=== PATIENT | male | born 1970 | race Caucasian/White ===

== ENCOUNTER 2020-08-22 18:01 | Observation (INO) ==
[2020-08-22] MEDS ORDERED: ASPIRIN CHEW 324 MG PO STA (18:37)
[2020-08-22] MEDS ORDERED: GI COCKTAIL ED USE PO ONE (18:39)
--- NOTE | 2020-08-22 18:44 | Emergency Department Note ---
Impression & Plan Chest pain, Abnormal EKG ED Provider Note NAME: AARON NUNES AGE: 50 SEX: M : 1970 ARRIVES VIA: Walk-In INFORMANT: Patient, ED PROVIDER(S): Dany Garcia DO CHIEF COMPLAINT: Chest pain HPI: The patient is a 50-year-old male who presented to the emergency department with his significant other for an evaluation of chest pain. The patient describes anterior chest pain which he described as a pressure that began at 9 :00 this morning while he was at work. He states he has no shortness of breath but does complain of some diaphoresis as well as nausea. He states "my stomach is in a knot". He denies any specific abdominal pain or back pain. He states the pain was associated with palpitations and irregular heartbeat as well as radiation to both shoulders. He states he has no pain at this time. He states that he did have a heart catheterization a few years ago that was normal and it was for similar symptoms. The patient states he has no palpitations at this time. He has no headache but he did have a slight headache when the symptoms began earlier today. He denies having any shortness of breath at this time. He has no swelling in his legs or calf pain. ROS: See above HPI for pertinent positives & negatives. A total of 10 systems reviewed and were otherwise negative. PAST MEDICAL HISTORY: See Below PAST SURGICAL HISTORY: See Below FAMILY HISTORY: See Below SOCIAL HISTORY: See Below HOME MEDICATIONS: See Below ALLERGIES: See Below VITALS: See Below PHYSICAL EXAMINATION: GENERAL: Patient is awake alert in no acute distress patient is resting comfortably and showing no signs of anxiety EYES: The conjunctivae are clear. The pupils are round and reactive. EARS, NOSE, MOUTH AND THROAT: The nose is without any evidence of any deformity. Mucous membranes are moist. Tongue is midline. NECK: The neck is nontender and supple. RESPIRATORY: Normal respiratory effort is noted there is no evidence of wheezing rhonchi or rales CARDIOVASCULAR: Regular rate and rhythm noted there no murmurs rubs or gallops normal S1 normal S2. GASTROINTESTINAL: The abdomen is soft. Abdomen is nontender. MUSCULOSKELETAL/EXTREMITIES: There is no evidence of gross deformity full range of motion is noted in the hips and shoulders. SKIN: There is no obvious evidence of any rash. There are no petechiae, pallor or cyanosis noted. NEUROLOGIC: Patient is awake alert and oriented x3 strength is symmetric patellar reflexes are 2+ bilaterally MEDICAL DECISION MAKING: The patient is a 50-year-old male who presented to the emergency department for an evaluation of chest pain. The patient describes anterior chest pain which began early this morning. He was at work when this occurred. His pain was not typically cardiac sounding however it did have some radiation components that could be related to his heart. The patient's EKG does show some nonspecific ST depressions. Compared to an earlier tracing these changes are new. I discussed the patient's laboratory and radiographic studies with him. I also discussed the limitations of the emergency department work-up for chest pain with him. Ultimately I feel the patient may be at high risk so I will [facility] Triage Nursing notes reviewed. Prior medical records reviewed Vital Signs: reviewed and remarkable for elevated blood pressure. Differential diagnosis: Cardiac ischemia, aortic dissection, pulmonary embolism, pneumothorax, pneumonia, pericarditis, myocarditis, esophageal rupture, GERD, cholecystitis, pancreatitis, musculoskeletal, as well as other pathologies. ER treatment provided: See below Diagnostics interpreted by me: ECG: EKG was obtained in the emergency department. My interpretation is normal sinus rhythm at 88 bpm. There was no ectopy. Inferior and apical ST segment abnormalities were noted. This EKG was compared to a tracing from October 082013. The ST segment abnormalities are new compared to the earlier tracing. Cardiac Monitoring: An order was placed for continuous cardiac monitoring. The monitor shows a rate of 72 bpm with sinus rhythm. Laboratory studies: As stated above and show below. Imaging studies: See below Consultation(s): 1945: The [facility] hospitalist was notified about the patient. Past Med/Surg History Medical History Bronchitis Cellulitis Dermatitis Encounter for CDL (commercial driving license) exam GERD (gastroesophageal reflux disease) Hyperlipidemia Pharyngitis Screening for diabetes mellitus Surgical History S/P tonsillectomy S/P unilateral hernia repair Family History Mother Breast cancer Brother Leukemia Father Heart disease Father Myocardial infarction Family/Other Cancer Denies family history of Ovarian cancer Prostate cancer Lung cancer Colorectal cancer Social History Smoking Status: Former smoker Hx Alcohol Use: No Hx Substance Use: No Preferred Language: Romanian Communication Ability: Effective Visual Impairment: No Limitations Hearing Ability: Normal 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 marital status: Current Living Situation: Spouse current occupational status: employed Feels Safe at Home: Yes Childhood Exposure to Second-Hand Smoke: Yes Dental Care, Regularly: Yes Physical Activity Frequency: Other Physical Activity Frequency Comment: Sometimes Seatbelt Use: always Sunscreen Use: Yes Allergies Allergies Allergy/AdvReac Type Severity Reaction Status Date / Time No Known Allergies Allergy Verified 08/22/20 19:19 Home Meds Previous Rx's Medication Instructions Recorded atorvastatin 20 mg tablet 20 mg PO DAILY #90 tab 04/06/20 omeprazole 40 mg capsule,delayed 40 mg PO DAILY #90 cap 04/06/20 release Results & Data (ED) Vital Signs Vital Signs - 24 hr 08/22/20 18:06 Temperature 36.7 C Temperature Source Oral Pulse Rate 98 H Respiratory Rate 18 Respiratory Effort / Characteristics Non-Labored Spontaneous Respiratory Depth Normal Blood Pressure 150/97 H Blood Pressure Mean 114 Blood Pressure Position Sitting Pulse Oximetry 98 Oxygen Delivery Method Room Air Sepsis Recent Fever Within 48 Hours No Sepsis New/Unexplained Change in Mental Status No Sepsis Action Taken by Nursing No Action Required Home Medications Current Medication List: was personally reviewed by me Laboratory Data Attestation: I reviewed the patient's lab results. Result diagrams: 08/22/20 18:53 08/22/20 18:53 Lab Results 08/22/20 08/22/20 08/22/20 Range/Units 18:53 18:53 18:53 WBC 15.68 H (4.8-10.8) K/uL RBC 5.07 (4.7-6.1) M/uL Hgb 15.6 (14.0-18.0) g/dL Hct 44.5 (42-52) % MCV 87.8 (80-100) fL MCH 30.8 (25-34) pg MCHC 35.1 (32-36) g/dL RDW Std Deviation 38.1 (36.4-46.3) fL RDW Coeff of Karla 12.0 (11.5-14.5) % Plt Count 237 (130-400) K/uL MPV 9.7 (7.4-10.4) fL Immature Gran % (Auto) 0.3 % Neut % (Auto) 82.9 % Lymph % (Auto) 9.7 % [place] % (Auto) 6.6 % Eos % (Auto) 0.3 % Baso % (Auto) 0.2 % Neut # (Auto) 13.01 H (1.4-6.5) K/uL Lymph # (Auto) 1.52 (1.2-3.4) K/uL [place] # (Auto) 1.03 H (0.11-0.59) K/uL Eos # (Auto) 0.04 (0-0.5) K/uL Baso # (Auto) 0.03 (0-0.2) K/uL Immature Gran # (Auto) 0.05 H (0.00-0.02) K/uL PT 11.0 (9.0-12.0) Seconds INR 1.0 (0.9-1.1) APTT 29.3 (21.0-31.0) Seconds PTT Ratio 1.1 D-Dimer 240 (0-500) ug/L FEU Sodium 139 (136-145) mmol/L Potassium 4.2 (3.5-5.1) mmol/L Chloride 103 (98-107) mmol/L Carbon Dioxide 29 (21-32) mmol/L Anion Gap 7.0 (3-11) BUN 10 (7-18) mg/dl Creatinine 1.03 (0.6-1.4) mg/dl Est Cr Clr Drug Dosing 97.9 ml/min Est GFR ( Amer) 98.4 Est GFR (Non-Af Amer) 84.9 BUN/Creatinine Ratio 9.4 L (10-20) Glucose 88 (70-99) mg/dl Calcium 8.9 (8.5-10.1) mg/dl Total Bilirubin 0.7 (0.2-1) mg/dl AST 19 (15-37) U/L ALT 40 (12-78) U/L Alkaline Phosphatase 91 (45-117) U/L Troponin I < 0.015 (0-0.045) ng/ml Total Protein 7.2 (6.4-8.2) gm/dl Albumin 3.7 (3.4-5.0) gm/dl Globulin 3.5 (2.5-4.0) gm/dl Albumin/Globulin Ratio 1.1 (0.9-2) Lipase 114 (73-393) U/L Administered Medications Discontinued Medications Al Hydrox/Mg Hydrox/Simethicone (Gi Cocktail Ed Use) 1 dose PO ONE ONE Stop: 08/22/20 18:40 Last Admin: 08/22/20 18:56 Dose: 1 dose Documented by: [id number] Aspirin (Aspirin Chew 324 Mg) 324 mg PO NOW STA Stop: 08/22/20 18:38 Last Admin: 08/22/20 18:56 Dose: 324 mg Documented by: [id number] Imaging Data Radiologist's Impression: Patient: AARON NUNES Admit Date: 08/22/20 MR#: [id number] Address1: [address] [place] [address] Acct ID:[id number] Address2: Date: 1970 [facility] Zip: [place] [address] Age: 50 Location: ED Sex: M Room/Bed: Att Phy: Diagnosis: CHEST PAIN/PRESSURE, ARM TINGLING Leanna Phy: RV. Weinberg MD Service Date: 08/22/20 [facility] Phy: Interpreting Phy: August Johnson MD Admit Phy: Ordering Phy: Dany Garcia DO cc: ~ SINGLE VIEW CHEST CLINICAL HISTORY: Atypical chest pain. FINDINGS: An AP, portable, upright chest radiograph is compared to study dated 11/30/2015. The cardiomediastinal silhouette is unremarkable. There is mild elevation of the right hemidiaphragm. The lungs and pleural spaces are clear. No pneumothorax is seen. The bony thorax is grossly intact. IMPRESSION: No active disease in the chest. ACT 112: Negative or not required by law. Electronically signed by: August Johnson M.D. 08/22/2020 7:02 PM Dictated: 08/22/201900 Transcribed: 08/22/201900 Blood Pressure Blood Pressure Findings: Elevated blood pressure Blood Pressure Disposition: further management by hospitalist Discharge Plan Visit Data Chief Complaint: Chest Pain Stated Complaint: CHEST PAIN/PRESSURE, ARM TINGLING ED Provider: Dany Garcia Discharge Problem: Chest pain, Abnormal EKG Patient Disposition: Being Evaluated by Hospitalist Condition: Good Forms Stand Alone Forms: My [facility] Prescriptions Prescriptions: No Action atorvastatin 20 mg tablet 20 mg PO DAILY Qty: 90 RF: 3 omeprazole 40 mg capsule,delayed release(DR/EC) 40 mg PO DAILY Qty: 90 RF: 3 Referrals Referrals: Leona Celaya MD [Primary Care Provider] -
[2020-08-22 19:03] LABS: Basophils # (auto) 0.03 K/uL (0-0.2); Basophils % (auto) 0.2 %; Eosinophils # (auto) 0.04 K/uL (0-0.5); Eosinophils % (auto) 0.3 %; Hematocrit (blood only) 44.5 % (42-52); Hemoglobin 15.6 g/dL (14.0-18.0); Immature Granulocytes # (auto) 0.05 K/uL (0.00-0.02); Immature Granulocytes % (auto) 0.3 %; Lymphocytes # (auto) 1.52 K/uL (1.2-3.4); Lymphocytes % (auto) 9.7 %; Mean Corpuscular Hemoglobin 30.8 pg (25-34); Mean Corpuscular Hgb Conc 35.1 g/dL (32-36); Mean Corpuscular Volume 87.8 fL (80-100); Mean Platelet Volume 9.7 fL (7.4-10.4); Monocytes # (auto) 1.03 K/uL (0.11-0.59); Monocytes % (auto) 6.6 %; Neutrophils # (auto) 13.01 K/uL (1.4-6.5); Neutrophils % (auto) 82.9 %; Platelet Count 237 K/uL (130-400); RDW Standard Deviation 38.1 fL (36.4-46.3); Red Blood Count 5.07 M/uL (4.7-6.1); White Blood Count 15.68 K/uL (4.8-10.8)
--- NOTE | 2020-08-22 19:03 | XRay Report ---
SINGLE VIEW CHEST CLINICAL HISTORY: Atypical chest pain. FINDINGS: An AP, portable, upright chest radiograph is compared to study dated 11/30/2015. The cardiom ediastinal silhouette is unremarkable. There is mild elevation of the right hemidiaphragm. The lungs and pleural spaces are clear. No pneumothorax is seen. The bony thorax is grossly intact. IMPRESSION: No active disease in the chest. ACT 112: Negative or not required by law. Electronically signed by: August Johnson M.D. 08/22/2020 7:02 PM
[2020-08-22 19:19] LABS: D Dimer 240 ug/L FEU (0-500); Partial Thromboplastin Ratio 1.1; Partial Thromboplastin Time 29.3 Seconds (21.0-31.0)
[2020-08-22 19:20] LABS: Alanine Aminotransferase 40 U/L (12-78); Albumin Level 3.7 gm/dl (3.4-5.0); Aspartate Aminotransferase 19 U/L (15-37); BUN Creatinine Ratio 9.4 (10-20); Blood Urea Nitrogen 10 mg/dl (7-18); Calcium 8.9 mg/dl (8.5-10.1); Carbon Dioxide 29 mmol/L (21-32); Chloride 103 mmol/L (98-107); Creatinine Clr Calc Pharmacy 97.9 ml/min; Est GFR (African American) 98.4; Est GFR (Non-African American) 84.9; Glucose 88 mg/dl (70-99); Lipase 114 U/L (73-393); Potassium 4.2 mmol/L (3.5-5.1); Sodium 139 mmol/L (136-145)
[2020-08-22 19:25] LABS: Albumin Globulin Ratio 1.1 (0.9-2); Alkaline Phosphatase 91 U/L (45-117); Bilirubin,Total 0.7 mg/dl (0.2-1); Globulin 3.5 gm/dl (2.5-4.0); Total Protein 7.2 gm/dl (6.4-8.2); Troponin I < 0.015 ng/ml (0-0.045)
--- NOTE | 2020-08-22 20:34 | History & Physical Report ---
Date of Service August 22, 2020 Assessment & Plan (1) Chest pain: Exertional chest pain/abnormal EKG/family history of father with fatal UT at age 56- The patient will be admitted to telemetry for serial cardiac enzymes, serial EKG's, cardiac rhythm monitoring and a 2-D echocardiogram with Dopplers. Received 324 mg aspirin today, and will continue at 81 mg daily. If work-up is negative, will need a stress test prior to discharge. Of note, he did have a stress echo done in 2013 which was normal Present on Admission?: Yes (2) Abnormal EKG: See above Present on Admission?: Yes (3) GERD (gastroesophageal reflux disease): Continue omeprazole 40 mg daily Present on Admission?: Yes (4) Hyperlipidemia: Continue atorvastatin 20 mg daily. Check a fasting lipid panel and hemoglobin A1c Present on Admission?: Yes (5) Family history of heart disease: His father of a massive heart attack at age 56, unknown if he had had any issues prior to that Present on Admission?: Yes History of Present Illness Chief Complaint: The patient presents to the ED with complaint of an acute episode of chest pain/pressure, palpitations nausea and sweats while at work earlier today. Primary Care Provider: Leona Celaya MD The patient is a 50-year-old male with a past medical history including hyperlipidemia, GERD, family history of father with premature CAD and cardiac . He presents to the emergency department with acute onset of chest discomfort, shortness of breath, nausea and sweats while at work earlier in the day. He has not had these symptoms in the past. 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 He denies any direct exposure to Covid 19. He did take 2 aspirin when the symptoms occurred, and has had 2 additional baby aspirin since that time. He does not take aspirin on a regular basis. Allergies Allergy/AdvReac Type Severity Reaction Status Date / Time No Known Allergies Allergy Verified 08/22/20 19:19 Home Medications Home Medications Medication Instructions Recorded Confirmed Type atorvastatin 20 mg tablet 20 mg PO DAILY #90 tab 04/06/20 08/22/20 Rx omeprazole 40 mg capsule,delayed 40 mg PO DAILY #90 cap 04/06/20 08/22/20 Rx release Past Med/Surg History Medical History Bronchitis Cellulitis Dermatitis Encounter for CDL (commercial driving license) exam GERD (gastroesophageal reflux disease) Hyperlipidemia Pharyngitis Screening for diabetes mellitus Surgical History S/P tonsillectomy S/P unilateral hernia repair Family History Mother Breast cancer Brother Leukemia Father Heart disease Father Myocardial infarction Family/Other Cancer Denies family history of Ovarian cancer Prostate cancer Lung cancer Colorectal cancer Social History Smoking Status: Former smoker Hx Alcohol Use: No Hx Substance Use: No Preferred Language: Tuvaluan Communication Ability: Effective Visual Impairment: No Limitations Hearing Ability: Normal Clinical Research Tech Required: No marital status: Current Living Situation: Spouse current occupational status: employed Feels Safe at Home: Yes Childhood Exposure to Second-Hand Smoke: Yes Dental Care, Regularly: Yes Physical Activity Frequency: Other Physical Activity Frequency Comment: Sometimes Seatbelt Use: always Sunscreen Use: Yes Review of Systems Review of Systems: The patient denies cough, lower extremity swelling, sore throat, fevers, chills, sweats, vomiting, diarrhea , constipation, abdominal pain, pelvic pain, blood in urine or stool, dysuria, urinary frequency or urgency, lightheadedness, dizziness, headache, memory loss, loss of consciousness, rash, abnormal bruising or bleeding, imbalance, focal or generalized weakness, numbness or tingling in legs, generalized arthralgias or myalgias, back or neck pain, or night sweats. The review of systems is otherwise negative other than for that already noted above, and at least 10 systems have been reviewed. Physical Exam Physical Exam: The patient is awake, alert and oriented 3, well developed and well nourished, normocephalic and atraumatic, lying in bed and in no acute distress. HEENT--PERRL, EOMI, mucous membranes and oropharynx normal. Neck--supple. No JVD. No bruits. Thyroid normal, trachea midline, no adenopathy. Heart--normal S1 and S2. No murmurs, rubs or gallops. Lungs--clear bilaterally, no respiratory distress, no accessory muscle use. Abdomen--normal bowel sounds and soft. Nontender. Nondistended, no hernias or masses, no organomegaly. Extremities--no cyanosis or clubbing. No edema. Dermatologic--normal skin turgor, normal color, no abnormal lymph nodes, no rash. Neurologic--cranial nerves II through XII grossly intact. Rheumatologic--normal range of motion. Psychiatric--normal affect. Results & Data Results & Data ([facility]) Vital Signs (Past 12 Hours) Vital Signs Temp Pulse Resp BP Pulse Ox 08/22/20 18:06 98.1 F 98 H 18 150/97 H 98 Laboratory Results Laboratory Results WBC 15.68 K/uL (4.8-10.8) H 08/22/20 18:53 RBC 5.07 M/uL (4.7-6.1) 08/22/20 18:53 Hgb 15.6 g/dL (14.0-18.0) 08/22/20 18:53 Hct 44.5 % (42-52) 08/22/20 18:53 MCV 87.8 fL (80-100) 08/22/20 18:53 MCH 30.8 pg (25-34) 08/22/20 18:53 MCHC 35.1 g/dL (32-36) 08/22/20 18:53 RDW Std Deviation 38.1 fL (36.4-46.3) 08/22/20 18:53 RDW Coeff of Karla 12.0 % (11.5-14.5) 08/22/20 18:53 Plt Count 237 K/uL (130-400) 08/22/20 18:53 MPV 9.7 fL (7.4-10.4) 08/22/20 18:53 Immature Gran % (Auto) 0.3 % 08/22/20 18:53 Neut % (Auto) 82.9 % 08/22/20 18:53 Lymph % (Auto) 9.7 % 08/22/20 18:53 [place] % (Auto) 6.6 % 08/22/20 18:53 Eos % (Auto) 0.3 % 08/22/20 18:53 Baso % (Auto) 0.2 % 08/22/20 18:53 Neut # (Auto) 13.01 K/uL (1.4-6.5) H 08/22/20 18:53 Lymph # (Auto) 1.52 K/uL (1.2-3.4) 08/22/20 18:53 [place] # (Auto) 1.03 K/uL (0.11-0.59) H 08/22/20 18:53 Eos # (Auto) 0.04 K/uL (0-0.5) 08/22/20 18:53 Baso # (Auto) 0.03 K/uL (0-0.2) 08/22/20 18:53 Immature Gran # (Auto) 0.05 K/uL (0.00-0.02) H 08/22/20 18:53 PT 11.0 Seconds (9.0-12.0) 08/22/20 18:53 INR 1.0 (0.9-1.1) 08/22/20 18:53 APTT 29.3 Seconds (21.0-31.0) 08/22/20 18:53 PTT Ratio 1.1 08/22/20 18:53 D-Dimer 240 ug/L FEU (0-500) 08/22/20 18:53 Sodium 139 mmol/L (136-145) 08/22/20 18:53 Potassium 4.2 mmol/L (3.5-5.1) 08/22/20 18:53 Chloride 103 mmol/L (98-107) 08/22/20 18:53 Carbon Dioxide 29 mmol/L (21-32) 08/22/20 18:53 Anion Gap 7.0 (3-11) 08/22/20 18:53 BUN 10 mg/dl (7-18) 08/22/20 18:53 Creatinine 1.03 mg/dl (0.6-1.4) 08/22/20 18:53 Est Cr Clr Drug Dosing 97.9 ml/min 08/22/20 18:53 Est GFR ( Amer) 98.4 08/22/20 18:53 Est GFR (Non-Af Amer) 84.9 08/22/20 18:53 BUN/Creatinine Ratio 9.4 (10-20) L 08/22/20 18:53 Glucose 88 mg/dl (70-99) 08/22/20 18:53 Calcium 8.9 mg/dl (8.5-10.1) 08/22/20 18:53 Total Bilirubin 0.7 mg/dl (0.2-1) 08/22/20 18:53 AST 19 U/L (15-37) 08/22/20 18:53 ALT 40 U/L (12-78) 08/22/20 18:53 Alkaline Phosphatase 91 U/L (45-117) 08/22/20 18:53 Troponin I < 0.015 ng/ml (0-0.045) 08/22/20 18:53 Total Protein 7.2 gm/dl (6.4-8.2) 08/22/20 18:53 Albumin 3.7 gm/dl (3.4-5.0) 08/22/20 18:53 Globulin 3.5 gm/dl (2.5-4.0) 08/22/20 18:53 Albumin/Globulin Ratio 1.1 (0.9-2) 08/22/20 18:53 Lipase 114 U/L (73-393) 08/22/20 18:53 Diagnostic Findings [place], [place] [phone] XRay Report Patient: AARON NUNES Date: 08/22/20 MR#: [id number]: [address] [facility] Acct ID:[id number]: Date: 1970[facility] Zip: [place] [address] Age: 50Location: ED Sex: MRoom/Bed: Att Phy:Diagnosis: CHEST PAIN/PRESSURE, ARM TINGLING Leanna Phy: RV. Sultana, MDService Date: 08/22/20 Fam Phy:Interpreting Phy: August Johnson MD Admit Phy: Ordering Phy: Dany Garcia DO cc: ~ SINGLE VIEW CHEST CLINICAL HISTORY: Atypical chest pain. FINDINGS: An AP, portable, upright chest radiograph is compared to study dated 11/30/2015. The cardiomediastinal silhouette is unremarkable. There is mild elevation of the right hemidiaphragm. The lungs and pleural spaces are clear. No pneumothorax is seen. The bony thorax is grossly intact. IMPRESSION: No active disease in the chest. ACT 112: Negative or not required by law. Electronically signed by: August Johnson M.D. 08/22/2020 7:02 PM Dictated: 08/22/201900 Transcribed: 08/22/201900 Code Status & VTE Plan Code Status Full code VTE Prophylaxis Plan VTE Prophylaxis will be ordered: Yes PG Care Time/CCT Total # of Minutes Spent Total Time Spent with Patient: Total time spent is greater than 50% in coordination of care (as documented) at patient's floor/unit and/or counseling patient: Coding Level of Care Code 74808 OBS Care - Level 3 Diagnoses Chest pain R07.9 Chest pain type: unspecified Abnormal EKG R94.31 GERD (gastroesophageal reflux disease) K21.9 Hyperlipidemia E78.5 Family history of heart disease Z82.49 (1) Chest pain Chest pain type: unspecified Qualified Code(s): R07.9 - Chest pain, unspecified
[2020-08-22] MEDS ORDERED: MoRPHine SULFATE 2 MG/ML CARP IV PRN (22:13)
[2020-08-22] MEDS ORDERED: MAGNESIUM HYDROXIDE SUSP 30 ML UDC PO PRN (22:13)
[2020-08-22] MEDS ORDERED: ALUMINUM/MAGNESIUM SUSP 30 ML UDC PO PRN (22:13)
[2020-08-22] MEDS ORDERED: ONDANSETRON INJ 2 MG/ML 2 ML VIAL IV PRN (22:13)
[2020-08-22] MEDS ORDERED: ACETAMINOPHEN 325 MG TAB PO PRN (22:13)
[2020-08-22] MEDS ORDERED: NITROGLYCERIN SL 0.4 MG/TAB TAB SL PRN (22:13)
[2020-08-22] MEDS ORDERED: INFLUENZA VIRUS QUAD VACCINE 0.5 ML SYR IM ONE (22:28)
[2020-08-22] MEDS ORDERED: INFLUENZA ADMINISTRATION CHARGE ONE (22:28)
[2020-08-23 08:21] LABS: Basophils # (auto) 0.02 K/uL (0-0.2); Basophils % (auto) 0.2 %; Eosinophils # (auto) 0.05 K/uL (0-0.5); Eosinophils % (auto) 0.5 %; Hematocrit (blood only) 44.3 % (42-52); Hemoglobin 15.5 g/dL (14.0-18.0); Immature Granulocytes # (auto) 0.02 K/uL (0.00-0.02); Immature Granulocytes % (auto) 0.2 %; Lymphocytes # (auto) 1.37 K/uL (1.2-3.4); Lymphocytes % (auto) 14.4 %; Mean Corpuscular Hemoglobin 30.7 pg (25-34); Mean Corpuscular Volume 87.7 fL (80-100); Mean Platelet Volume 9.8 fL (7.4-10.4); Monocytes # (auto) 0.98 K/uL (0.11-0.59); Monocytes % (auto) 10.3 %; Neutrophils # (auto) 7.06 K/uL (1.4-6.5); Neutrophils % (auto) 74.4 %; Platelet Count 225 K/uL (130-400); Red Blood Count 5.05 M/uL (4.7-6.1)
--- NOTE | 2020-08-23 08:23 | XCELERA ---
[id number]
[2020-08-23 08:48] LABS: Albumin Level 3.5 gm/dl (3.4-5.0); BUN Creatinine Ratio 9.5 (10-20); Blood Urea Nitrogen 10 mg/dl (7-18); Calcium 9.3 mg/dl (8.5-10.1); Carbon Dioxide 27 mmol/L (21-32); Chloride 105 mmol/L (98-107); Creatinine Clr Calc Pharmacy 99.5 ml/min; Glucose 94 mg/dl (70-99); Magnesium 2.2 mg/dl (1.8-2.4); Potassium 4.1 mmol/L (3.5-5.1); Sodium 138 mmol/L (136-145)
[2020-08-23 08:53] LABS: Troponin I < 0.015 ng/ml (0-0.045)
[2020-08-23] MEDS ORDERED: PANTOprazole 40 MG TAB PO SCH (09:00)
[2020-08-23] MEDS ORDERED: ATORVASTATIN 20 MG TAB PO SCH (09:00)
[2020-08-23] MEDS ORDERED: ASPIRIN 81 MG ECTAB PO SCH (09:00)
--- NOTE | 2020-08-23 09:08 | Electrocardiogram Report ---
Test Reason : Blood Pressure : / mmHG Vent. Rate : 081 BPM Atrial Rate : 081 BPM P-R Int : 150 ms QRS Dur : 094 ms QT Int : 370 ms P-R-T Axes : 058 033 021 degrees QTc Int : 429 ms Normal sinus rhythm Normal ECG When compared with ECG of 22-AUG-2020 18:07, No significant change was found Confirmed by Charli Martínez ([id number]) on 08/23/2020 9:08:24 AM Referred By: REFERRED SELF Confirmed By:Charli Martínez
--- NOTE | 2020-08-23 09:26 | Cardiology Consultation ---
Date of Consultation August 23, 2020 Assessment & Plan (1) Atypical chest pain: Mr. Pepper is a 50 year old male with a history of Non-Obstructive CAD (on Complete Cardiac CT Scan 2013), Hyperlipidemia, GERD, and Obesity who was admitted to [facility] on 08/22/2020 with an Atypical Chest Pain Syndrome. 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 There was no radiation of the chest pain. He denies any associated symptoms with this sharp chest pain -- specifically denying any associated nausea, vomiting, diaphoresis, or dyspnea. The chest pain was present off and on and did NOT worsen or have any association with exertion. Therefore he presented to [facility] ER for further evaluation, was admitted to the Telemetry unit. His cardiac work-up has shown undetectable Troponin I levels, normal EKG's, and his Echocardiogram shows borderline dilated LV with low normal LV systolic function (LVEF 50% to 55%). No regional wall motion abnormalities but borderline global hypokinesis. Based on his personal history of Non-Occlusive CAD in 2014 and Hyperlipidemia, we recommend the followin. Stress Echocardiogram this morning to rule out myocardial ischemia. 2. Advised to eat a heart healthy. 3. Start Aspirin 81 mg daily for primary prevention. 4. Recommend that he start taking Atorvastatin 20 mg daily or else increase Atorvastatin to 40 mg every other day. (2) CAD (coronary artery disease): -- Start Aspirin 81 mg daily for primary prevention. -- Recommend that he start taking Atorvastatin 20 mg daily or else increase Atorvastatin to 40 mg every other day. -- We discussed more aggressive lipid management and dietary interventions. -- Begin and progress an aerobic exercise program as tolerated. -- Lose weight. (3) Hyperlipidemia: -- As outlined above. Supervising Physician Co-Signing Physician Notes ADDENDUM (Dr. Martínez): Patient seen, interviewed, and examined. Agree with plan as outlined above by Mr. Carlos PURVIS. Patient had atypical chest pain (sharp, pleuritic component) yesterday which resolved, no symptoms currently. He underwent a stress echocardiogram this morning, exercise tolerance is very good and there were no ECG or echocardiographic findings to suggest myocardial ischemia or dysrhythmia. Agree with plan to continue aggressive cardiovascular risk factor management given his known nonocclusive coronary artery disease. Okay for discharge. History of Present Illness Reason for Consultation: -- Chest Pain. -- Family history of Premature CAD. Requesting Physician: Philly Charles MD Attending Physician: Charli Martínez MD History of Present Illness Mr. Pepper is a 50 year old male with a history of Non-Obstructive CAD (on Complete Cardiac CT Scan 2013), Hyperlipidemia, GERD, and Obesity who was admitted to [facility] on 08/22/2020 with a Chest Pain Syndrome. Patient was in his usual state of health yesterday morning and doing some manual work assembling some materials when he twisted his torso to one side and then had the onset of a Left Sided Chest Pain (mid left anterior chest pain in the midclavicular line) which was described as "a sharp pain" that worsened by taking a deep breath with an associated "stomachache" and a mild headache. There was no radiation of the chest pain. He denies any associated symptoms with this sharp chest pain -- specifically denying any associated nausea, vomiting, diaphoresis, or dyspnea. The chest pain was present off and on and did NOT worsen or have any association with exertion. Patient's cardiac risk factor include gender, hyperlipidemia, obesity, and a family history of premature CAD -- father of a heart attack at the age of 56. Paternal grandfather also a heart attack at a young age. Patient is a former smoker and he quit smoking several years ago. Thus far, his Cardiac Evaluation shows negative Troponin I levels x 3, and his Echocardiogram shows borderline dilated LV with low normal LV systolic function (LVEF 50% to 55%). No regional wall motion abnormalities but borderline global hypokinesis. Serial EKG's show normal sinus rhythm, normal tracings. Patient denies any chest pain or dyspnea at the present time. Patient underwent a Stress Echocardiogram in 2013 -- which was equivocal. He subsequently underwent Complete Cardiac CT Scan 10/23/2014: -- [place] CCS 88.02. -- LMCA -- No evidence of disease. -- LAD -- Calcified proximal plaque with 25% to 49% stenosis, < 25% midvessel stenosis, < 25% distal stenosis. -- LCx -- Within normal limits. -- RI -- Within normal limits. -- RCA -- Dominant vessel, with < 25% proximal stenosis. Allergies Allergy/AdvReac Type Severity Reaction Status Date / Time No Known Allergies Allergy Verified 08/22/20 19:19 Home Medications Home Medications Medication Instructions Recorded Confirmed Type atorvastatin 20 mg tablet 20 mg PO DAILY #90 tab 04/06/20 08/22/20 Rx omeprazole 40 mg capsule,delayed 40 mg PO DAILY #90 cap 04/06/20 08/22/20 Rx release Patient History Medical History (Updated 08/23/20 @ 11:49 by Rica Stanton) Cellulitis Dermatitis GERD (gastroesophageal reflux disease) Hyperlipidemia Surgical History S/P tonsillectomy S/P unilateral hernia repair Family History Mother Breast cancer Brother Leukemia Father Heart disease Father Myocardial infarction Family/Other Cancer Denies family history of Ovarian cancer Prostate cancer Lung cancer Colorectal cancer Social History Smoking Status: Never smoker Hx Alcohol Use: Yes Alcohol type: wine Hx Substance Use: No Preferred Language: Kazakh Communication Ability: Effective Visual Impairment: No Limitations Hearing Ability: Normal Clinical Program Consultant Required: No Beliefs That Will Affect Care: None marital status: Current Living Situation: Significant Other current occupational status: employed Feels Safe at Home: Yes Childhood Exposure to Second-Hand Smoke: Yes Dental Care, Regularly: Yes Physical Activity Frequency: Other Physical Activity Frequency Comment: Sometimes Seatbelt Use: always Sunscreen Use: Yes Assistive Devices: None Physical Exam Physical Exam: GENERAL: Patient in no acute distress. HEENT: Head is atraumatic, normocephalic. EOM's intact. Facies symmetric. No perioral cyanosis. NECK: No JVD. JVP is at the level of the clavicle sitting upright. Carotid upstrokes are + 2 bilaterally. No bruits are noted. CHEST/LUNGS: Clear to auscultation throughout all lung lewis. No wheezes, rales, or crackles. CVS: S1 and S2 are regular without obvious murmurs, gallops, or rubs. PMI is nonpalpable. No lifts, heaves, or thrills. No abdominal aortic or renal bruits. ABDOMINAL EXAM: Bowel sounds are present. No masses, organomegaly, or tenderness. EXTREMITIES: No clubbing or cyanosis. No edema. Intact radial pulses bilaterally. NEUROLOGIC EXAM: Patient is awake, alert, and oriented. Pleasant and cooperative. Answers questions appropriately. Speech is clear. Normal movement in all 4 extremities. Gait pattern is unremarkable. TELEMETRY: -- NSR with HR in the 60's to 80's range. -- No arrhythmias or significant ectopy. STRESS ECHOCARDIOGRAM is pending. Results & Data ([facility]) Vital Signs (Past 12 Hours) Vital Signs Temp Pulse Pulse Resp BP Pulse Ox 08/23/20 07:09 36.8 C 78 14 127/87 95 08/23/20 03:58 37.8 C H 92 H 16 128/83 92 08/22/20 23:20 37.1 C 80 14 128/76 96 08/22/20 22:16 89 08/22/20 22:13 37.1 C 85 20 130/81 93 Laboratory Results Laboratory Results - last 24 hr 08/22/20 08/22/20 08/22/20 18:53 18:53 18:53 WBC 15.68 H RBC 5.07 Hgb 15.6 Hct 44.5 MCV 87.8 MCH 30.8 MCHC 35.1 RDW Std Deviation 38.1 RDW Coeff of Karla 12.0 Plt Count 237 MPV 9.7 Immature Gran % (Auto) 0.3 Neut % (Auto) 82.9 Lymph % (Auto) 9.7 Hancock % (Auto) 6.6 Eos % (Auto) 0.3 Baso % (Auto) 0.2 Neut # (Auto) 13.01 H Lymph # (Auto) 1.52 Hancock # (Auto) 1.03 H Eos # (Auto) 0.04 Baso # (Auto) 0.03 Immature Gran # (Auto) 0.05 H PT 11.0 INR 1.0 APTT 29.3 PTT Ratio 1.1 D-Dimer 240 Sodium 139 Potassium 4.2 Chloride 103 Carbon Dioxide 29 Anion Gap 7.0 BUN 10 Creatinine 1.03 Est Cr Clr Drug Dosing 97.9 Est GFR ( Amer) 98.4 Est GFR (Non-Af Amer) 84.9 BUN/Creatinine Ratio 9.4 L Glucose 88 Calcium 8.9 Phosphorus Magnesium Total Bilirubin 0.7 AST 19 ALT 40 Alkaline Phosphatase 91 Troponin I < 0.015 Total Protein 7.2 Albumin 3.7 Globulin 3.5 Albumin/Globulin Ratio 1.1 Lipase 114 08/22/20 08/23/20 08/23/20 23:05 07:54 07:54 WBC 9.50 RBC 5.05 Hgb 15.5 Hct 44.3 MCV 87.7 MCH 30.7 MCHC 35.0 RDW Std Deviation 38.0 RDW Coeff of Karla 12.0 Plt Count 225 MPV 9.8 Immature Gran % (Auto) 0.2 Neut % (Auto) 74.4 Lymph % (Auto) 14.4 Hancock % (Auto) 10.3 Eos % (Auto) 0.5 Baso % (Auto) 0.2 Neut # (Auto) 7.06 H Lymph # (Auto) 1.37 Hancock # (Auto) 0.98 H Eos # (Auto) 0.05 Baso # (Auto) 0.02 Immature Gran # (Auto) 0.02 PT INR APTT PTT Ratio D-Dimer Sodium 138 Potassium 4.1 Chloride 105 Carbon Dioxide 27 Anion Gap 6.0 BUN 10 Creatinine 1.00 Est Cr Clr Drug Dosing 99.5 Est GFR ( Amer) 102.0 Est GFR (Non-Af Amer) 88.0 BUN/Creatinine Ratio 9.5 L Glucose 94 Calcium 9.3 Phosphorus 3.0 Magnesium 2.2 Total Bilirubin AST ALT Alkaline Phosphatase Troponin I < 0.015 < 0.015 Total Protein Albumin 3.5 Globulin Albumin/Globulin Ratio Lipase Medications Administered Active Medications Generic Name Dose Route Start Last Admin Trade Name Freq PRN Reason Stop Dose Admin Acetaminophen 650 mg 08/22/20 22:13 Acetaminophen 325 Mg Tab PO 09/21/20 22:12 Q4H PRN Pain or Fever Al Hydrox/Mg Hydrox/Simethicone 15 ml 08/22/20 22:13 Aluminum/Magnesium Susp 30 Ml Udc PO 09/21/20 22:12 Q4H PRN Dyspepsia Aspirin 81 mg 08/23/20 09:00 08/23/20 07:52 Aspirin 81 Mg Ectab PO 09/22/20 08:59 81 mg QAM JAVAD Administration Atorvastatin Calcium 20 mg 08/23/20 09:00 08/23/20 07:52 Atorvastatin 20 Mg Tab PO 09/22/20 08:59 20 mg DAILY JAVAD Administration Magnesium Hydroxide 30 ml 10/18/20 22:13 Magnesium Hydroxide Susp 30 Ml Udc PO 09/21/20 22:12 Q12H PRN Constipation Morphine Sulfate 2 mg 08/22/20 22:13 Morphine Sulfate 2 Mg/Ml Carp IV 09/05/20 22:12 Q30M PRN Chest Pain Nitroglycerin 0.4 mg 08/22/20 22:13 Nitroglycerin Sl 0.4 Mg/Tab Tab SL 09/21/20 22:12 UD PRN Chest Pain Ondansetron HCl 4 mg 08/22/20 22:13 Ondansetron Inj 2 Mg/Ml 2 Ml Vial IV 09/21/20 22:12 Q6H PRN Nausea Pantoprazole Sodium 40 mg 08/23/20 09:00 08/23/20 07:51 Pantoprazole 40 Mg Tab PO 09/22/20 08:59 40 mg DAILY JAVAD Administration PG Care Time/CCT Total # of Minutes Spent Total Time Spent with Patient: Total time spent is greater than 50% in coordination of care (as documented) at patient's floor/unit and/or counseling patient: 30 Coding Level of Care Code 52974 Inpt Consult Level 4 Diagnoses Atypical chest pain R07.89 CAD (coronary artery disease) I25.10 Hyperlipidemia E78.5 Time Spent (min) 55
--- NOTE | 2020-08-23 09:33 | Medical Student H&P ---
Date of Service August 23, 2020 Assessment & Plan (1) Chest pain: Manpreet is a 50 yo M with a history of HLD and previous smoking presenting with exertional chest pain with an abnormal EKG (mild ST- depressions in V4 V5 V6). He was admitted to telemetry for serial cardiac enzymes, serial EKG's and an echocardiogram. Aspirin 324mg/d was initiated on admission and will be continued at 81mg daily. D-dimers and troponin were not found to be elevated. Serial EKG's showed no abnormalities. A stress echo was ordered this morning. If there are no significant findings from the stress echo, the patient will be discharged and encouraged to follow up with his PCP. Chest pain type: unspecified Qualified Code(s): R07.9 - Chest pain, unspecified (2) Abnormal EKG: See above (3) GERD (gastroesophageal reflux disease): Continue omeprazole 40 mg daily (4) Hyperlipidemia: Continue atorvastatin 20 mg daily. (5) Family history of heart disease: His father of a massive heart attack at age 56, unknown if he had had any issues prior to that Admission and Anticipated Discharge Date Admission Date: August 22, 2020 History of Present Illness Primary Care Provider: Leona Celaya MD Manpreet is a 50 yo M with a PMHx of HLD and GERD that presented to the ED yesterday (08/22) at 6:40pm with anterior chest pain. 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 Pain was 7/10, radiated to the shoulders, was associated with palpation and irregular heart beat, and diaphoresis. He had no SOB. He took aspirin at the start of chest pain which did not improve the pain. Two more aspirin were taken prior to admission. He has had similar symptoms previously (3-4 years ago) for which he had a digoxin stress test showed no abnormalities. He denies any direct known COVID exposure. Family history is significant for by [place] in his father at age 50. Social history is significant for smoking with a 25 pack-year history, however he quit 8 years ago. Allergies Allergy/AdvReac Type Severity Reaction Status Date / Time No Known Allergies Allergy Verified 08/22/20 19:19 Home Medications Home Medications Medication Instructions Recorded Confirmed Type atorvastatin 20 mg tablet 20 mg PO DAILY #90 tab 04/06/20 08/22/20 Rx omeprazole 40 mg capsule,delayed 40 mg PO DAILY #90 cap 04/06/20 08/22/20 Rx release Past Med/Surg History Medical History (Updated 08/23/20 @ 11:49 by Rica Stanton) Cellulitis Dermatitis GERD (gastroesophageal reflux disease) Hyperlipidemia Surgical History S/P tonsillectomy S/P unilateral hernia repair Family History Mother Breast cancer Brother Leukemia Father Heart disease Father Myocardial infarction Family/Other Cancer Denies family history of Ovarian cancer Prostate cancer Lung cancer Colorectal cancer Social History Smoking Status: Never smoker Hx Alcohol Use: Yes Alcohol type: wine Hx Substance Use: No Preferred Language: Hungarian Communication Ability: Effective Visual Impairment: No Limitations Hearing Ability: Normal Animal Doctor Required: No Beliefs That Will Affect Care: None marital status: Current Living Situation: Significant Other current occupational status: employed Feels Safe at Home: Yes Childhood Exposure to Second-Hand Smoke: Yes Dental Care, Regularly: Yes Physical Activity Frequency: Other Physical Activity Frequency Comment: Sometimes Seatbelt Use: always Sunscreen Use: Yes Assistive Devices: None Review of Systems Manpreet endorses stomach pain rated 6/10 since the onset of his chest pain. Review of systems is otherwise negative. He denies nausea vomit, change in bowel habits. Manpreet denies cough, lower extremity swelling, sore throat, fevers, chills, sweats, blood in urine or stool, dysuria, urinary frequency or urgency, lightheadedness, dizziness, headache, memory loss, loss of consciousness, rash, abnormal bruising or bleeding, imbalance, focal or generalized weakness, numbness or tingling in legs, generalized arthralgias or myalgias, back or neck pain, or night sweats. . Physical Exam Physical Exam: Constitutional: Appears alert and non-distressed. Oriented x 3. HEENT: PERRL, EOMI, mucous membranes and oropharynx normal. Neck: Supple. No JVD appreciated. No bruits. No thyromegaly, trachea midline, no adenopathy. Heart: RRR, NMRG, normal S1 and S2. No pain to palpation over the precordium. Lung: Clear to auscultation bilaterally, no respiratory distress, no accessory muscle use. Abdomen:NABS. Nondistended, nontender. No hepatosplenomagly. . Extremities--no cyanosis or clubbing. No edema. Psychiatric--normal affect. Results & Data ([facility]) Vital Signs (Past 12 Hours) Vital Signs Temp Pulse Pulse Resp BP Pulse Ox 08/23/20 07:09 36.8 C 78 14 127/87 95 08/23/20 03:58 37.8 C H 92 H 16 128/83 92 08/22/20 23:20 37.1 C 80 14 128/76 96 08/22/20 22:16 89 08/22/20 22:13 37.1 C 85 20 130/81 93 Significant Labs: D-Dimer- 240 (0-500) Troponin- <.015 (.045) WBC- 9.6 (downtrending from 15.68 on admission) Code Status & VTE Plan VTE Prophylaxis Plan VTE Prophylaxis will be ordered: Yes
--- NOTE | 2020-08-23 11:17 | XCELERA ---
[id number]
--- NOTE | 2020-08-23 11:48 | Discharge Summary ---
Date of Service August 23, 2020 Admission HPI Per Admitting Provider Manpreet is a 50 yo M with a PMHx of HLD and GERD that presented to the ED yesterday (08/22) at 6:40pm with anterior chest pain. 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 Pain was 7/10, radiated to the shoulders, was associated with palpation and irregular heart beat, and diaphoresis. He had no SOB. He took aspirin at the start of chest pain which did improve the pain. Two more aspirin were taken prior to admission. He has had similar symptoms previously (3-4 years ago) for which he had a digoxin stress test showed no abnormalities. Family history is significant for by [place] in his father at age 50. The patient is a 50-year-old male with a past medical history including hyperlipidemia, GERD, family history of father with premature CAD and cardiac . He presents to the emergency department with acute onset of chest discomfort, shortness of breath, nausea and sweats while at work earlier in the day. He has not had these symptoms in the past. 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 He denies any direct exposure to Covid 19. He did take 2 aspirin when the symptoms occu rred, and has had 2 additional baby aspirin since that time. He does not take aspirin on a regular basis. Admission Exam Per Admitting Provider Constitutional: Appears alert and non-distressed. Oriented x 3. HEENT: PERRL, EOMI, mucous membranes and oropharynx normal. Neck: Supple. No JVD appreciated. No bruits. No thyromegaly, trachea midline, no adenopathy. Heart: RRR, NMRG, normal S1 and S2. No pain to palpation over the precordium. Lung: Clear to auscultation bilaterally, no respiratory distress, no accessory muscle use. Abdomen:NABS. Nondistended, nontender. No hepatosplenomagly. . Extremities--no cyanosis or clubbing. No edema. Psychiatric--normal affect. Principal Diagnosis atypical non-cardiac chest pain Discharge Exam Constitutional WD/WN, vitals as above Eyes PERRL, conjunctivae normal, anicteric sclerae Neck normal visual inspection Respiratory normal respiratory effort, lungs clear to auscultation Cardiovascular RRR, no murmur, no edema Gastrointestinal (Abdomen) normal bowel sounds, soft, nontender, no hepatosplenomegaly Skin no rashes, warm and dry Psychiatric A+Ox3, euthymic affect Discharge Data Allergies Allergy/AdvReac Type Severity Reaction Status Date / Time No Known Allergies Allergy Verified 08/24/20 15:00 Consultations 08/22/20 19:41 ED Decision to Admit Stat 08/22/20 22:13 Consult Cardiology Routine Hospital Course (1) Atypical chest pain: 50 yo M with Hx GERD, HLD admitted for chest pain rule out. Atypical chest pain: - On admission with complaints of sudden-onset left sided chest pain that was worsened with deep breaths with associated "stomachache" and headache. Pain did not radiate, and was not exertional. - CXR negative for pneumonia. - Evaluation including EKG, serial troponins, - stress Echo this AM negative for ACS. - Pain possibly 2/2 musculoskeletal cause, or GERD-related pain. - Cardiology consulted and appreciate recommendations: - Continue atorvastatin 20mg daily, daily aspirin 81mg, heart healthy diet. - Patient with smoking cessation 8 years ago; prior to that had 25 pack year smoking history. GERD: - Have advised food diary, continue omeprazole 40mg daily. - Pain is possibly secondary to GERD. (2) GERD (gastroesophageal reflux disease): (3) Hyperlipidemia: Total Time Total Time Spent Total Time Spent (In Minutes): see attending attestation Discharge Plan Discharge Items Patient Disposition: Home - Self-Care Reason For Visit: CHEST PAIN Discharge Diagnosis: chest pain Condition on Discharge: Good Activity: Per Instructions section Bathing: No limitations Non-emergency contact: Primary Care Provider Call non-emergency contact if: your symptoms worsen and your temperature is above 101 Follow-up/Referrals: Leona Celaya MD [Primary Care Provider] - 08/27/20 10:30 am (Appointment is with TOSHA Bravo) Diet: Heart Healthy Addtl Attending Provider Instructions: You were admitted to the hospital for chest pain. Your heart was evaluated for signs of heart attack. We checked your heart enzymes and your EKG, which were both normal. You had a stress Echocardiogram and you performed very well, without findings that would suggest heart attack. Your chest pain went away overnight. It is possible that your symptoms were due to GI upset or muscle strain or sprain, though this is not clear. Your evaluation of your heart and lungs was normal, and you were felt to be safe for discharge home. Please follow up with your primary care doctor regarding your symptoms. You should keep taking your reflux medicine and your cholesterol medicine (atorvastatin 20mg daily). You should start taking a daily baby aspirin (81 milligrams). Please follow up with your primary care doctor regarding your hospitalization and to further discuss risk management of cardiac disease. If you have shortness of breath, crushing chest pain, fevers over 100.4, or other symptoms concerning for you, please seek urgent medical attention. Pending Studies at Discharge: No Stand-Alone Forms: My [facility] [employer], Smoking Cessation Medications and DC Order Prescriptions: New aspirin 81 mg Tablet,Delayed Release (Dr/Ec) 81 mg PO QAM Qty: 30 RF: 0 Continued atorvastatin 20 mg tablet 20 mg PO DAILY Qty: 90 RF: 3 omeprazole 40 mg capsule,delayed release(DR/EC) 40 mg PO DAILY Qty: 90 RF: 3 Discharge Orders: Discharge Order (Routine); Ordered 08/23/20 Ordered By: Marcy Mcbride Admission Data Admit Date/Time: 08/22/20 20:33 Attending Provider: Philly Charles Admit Provider: Vazquez Ham Primary Care Provider: Leona Celaya V. Other Providers: Vazquez Ham ; Russ Alonso Other Interventions: Discharge Summary Assessment (RN) Last Done: 08/23/20 14:35 Supervising Physician Co-Signing Physician Notes Resident Physician Supervision Note: I independently interviewed and examined the patient and verified the latham history and physical, reviewed labs and image studies, discussed the case with the resident and agree with the findings and care plan. Resident Activity Tracking Resident Involvement: Resident Care Provided Care Provided: Adult Hospital Medicine
--- NOTE | 2020-08-23 12:43 | Electrocardiogram Report ---
Test Reason : Blood Pressure : / mmHG Vent. Rate : 088 BPM Atrial Rate : 088 BPM P-R Int : 148 ms QRS Dur : 092 ms QT Int : 334 ms P-R-T Axes : 052 032 028 degrees QTc Int : 404 ms Normal sinus rhythm Normal ECG No previous ECGs available Confirmed by Charli Martínez ([id number]) on 08/23/2020 12:42:56 PM Referred By: REFERRED SELF Confirmed By:Charli Martínez
== END 2020-08-23 15:32 | disposition home or self-care (01) ==
LOC: ED 18:01 → 2S 18:01 → SUATTDRO 20:33 → 2S 21:49